=== PATIENT | female | born 1960 | race Caucasian/White ===

== ENCOUNTER 2016-05-22 17:10 | Emergency (ER) | payer OTHER ==
[~2016-05-22] VITALS: Ht 165.1 cm; Wt 104.5 kg
[2016-05-22 17:12] VITALS: TEMP 97.9
[2016-05-22] MEDS ORDERED: DIOVAN HCT 25 M1 TA1 PO (17:15)
[2016-05-22] MEDS ORDERED: VITAMIND3 5000 PO (17:16)
[2016-05-22] MEDS ORDERED: ULTRAM 50MG TAB50 MG PO (18:32)
[2016-05-22 18:59] VITALS: BP 122/62; PULSE 68
== END 2016-05-22 19:00 | disposition home or self-care (01) ==
LOC: COL.ER 17:10
DX: S09.90XA Unspecified injury of head, initial encounter (principal); R51 Headache; M25.512 Pain in left shoulder; I10 Essential (primary) hypertension; W04.XXXA Fall while being carried or supported by other persons, initial encounter; Y92.129 Unspecified place in nursing home as the place of occurrence of the external cause
CPT/HCPCS: J1170; J1885

== ENCOUNTER 2016-07-06 08:39 | Outpatient (RCR) | payer OTHER ==
[~2016-07-06 08:39] MED LIST: DIOVAN HCT 25 M1 TA1 PO; ULTRAM 50MG TAB50 MG PO; VITAMIND3 5000 PO
== END 2016-08-23 | disposition home or self-care (01) ==
LOC: WSOH
DX: S06.0X9D Concussion with loss of consciousness of unspecified duration, subsequent encounter (principal); W19.XXXD Unspecified fall, subsequent encounter; Y99.0 Civilian activity done for income or pay
CPT/HCPCS: G0283-GP

== ENCOUNTER → 2017-06-02 | Outpatient (CLI) | payer BC | LOC: MC.RAD 07:59 | DX: Z12.31 Encounter for screening mammogram for malignant neoplasm of breast (principal) ==